=== PATIENT | female | born 1980 | race Caucasian/White ===

== ENCOUNTER 2017-12-30 09:40 | Inpatient (IN) | payer OTHER ==
[2017-12-30] MEDS ORDERED: Penicillin G Potassium IV* 5,000,000 UNITS in NS 0.9% 100 ML* 100 ML IVPB ONE (11:05)
[2017-12-30 11:43] LABS: ABS Basophils 0 10^3/ul (0-0.2); ABS Eosinophils 0.1 10^3/ul (0-0.6); ABS Lymphocytes 2.4 10^3/ul (1.0-4.8); ABS Monocytes 0.6 10^3/ul (0-0.8); ABS Nucleated RBC 0 10^3/ul; Eosinophil % 0.7 % (0-6); Hematocrit 40 % (35-47); Hemoglobin 13.4 g/dl (12.0-16.0); Lymphocyte % 21.7 % (25-47); Mean Corpuscular HGB Conc 34 g/dl (31-36); Mean Corpuscular Hemoglobin 32 pg (27-31); Mean Corpuscular Volume 94 fL (80-97); Nucleated Red Blood Cells % 0.1; Platelet Count 151 10^3/ul (150-450); Red Blood Count 4.25 10^6/ul (4.0-5.4); Red Cell Distribution Width 15 % (10.5-15); White Blood Count 11.1 10^3/ul (3.5-10.8)
--- NOTE | 2017-12-30 12:58 | PTEDU ---
Patient Name: DAVEY KWOK DAVEY KWOK selected video: Never Ever Shake a Baby to view on 12/30/2017 at 12:57:37 PM from [facility] [id number]
--- NOTE | 2017-12-30 14:04 | HP ---
General Information - General Information Maternal Age: 37 Grav: 2 Para: 1 SAB: 0 IEA: 0 Estimated Due Date: 12/25/17 Determined By: Early Ultrasound Gestational Age in Weeks and Days: 40 Weeks and 5 Days Maternal Blood Type and Rh: A Positive - Results this Serology/RPR Result: Non-Reactive Rubella Result: Immune HBsAg Result: Negative HIV Result: Negative GBS Culture Result: Positive Past Medical History Delivery History: Hx Complicated Vaginal Delivery, See Records Review of Systems Constitutional: Comfortable CV Complaint: No Respiratory: Shortness of Breath: No Gastrointestinal: No Nausea/Vomiting Genitourinary: Bleeding - spotting twice, No Dysuria, No Leaking Fluid Musculoskeletal: Contractions - q8min for several hours Neurological: No Headache, No Visual Changes Movement: Normal Exam Allergies/Adverse Reactions: Allergies No Known Allergies Allergy (Verified 12/30/17 11:06) Lab Values - Entire Visit: Laboratory Tests 12/30/17 12/30/17 10:00 10:00 WBC 11.1 H RBC 4.25 Hgb 13.4 Hct 40 MCV 94 MCH 32 H MCHC 34 RDW 15 Plt Count 151 MPV 11.0 H Neut % (Auto) 71.7 Lymph % (Auto) 21.7 L [place] % (Auto) 5.6 Eos % (Auto) 0.7 Baso % (Auto) 0.3 Absolute Neuts (auto) 8.0 H Absolute Lymphs (auto) 2.4 Absolute Monos (auto) 0.6 Absolute Eos (auto) 0.1 Absolute Basos (auto) 0 Absolute Nucleated RBC 0 Nucleated RBC % 0.1 Blood Type A Positive Antibody Screen Negative - Measurements Height: 5 ft 5 in Weight: 170 lb Weight in lbs: 170 Body Mass Index (BMI): 28.3 Pre- Weight: 125 lb Weight Gained This : 45 lbs and 0 ozs - Exam Abdomen: - Heart: Normal Rhythm/Heart Sounds HEENT: No Significant Findings - Cervical Exam /- - Abdominal Exam Abdomen Exam: Non-Tender, Fundal Height Consistent with Dates EFM Findings - External Monitor Findings Baseline Heart Rate: 140 External Monitor Findings: Accelerations Present, No Pattern of Variable or Late Decelerations, Variability Moderate, Baseline Stable Contractions: Irregular Assessment/Plan - Reason for Visit Reason for Visit: early labor. H/o fast labor - Obstetrical Risk Factors Obstetrical Risk Factors: GBS Positive - Plan Plan: Observe, Early Labor, Antibiotic Prophylaxis
[2017-12-30] MEDS ORDERED: Penicillin G Potassium IV* 2,500,000 UNITS in NS 0.9% 100 ML* 100 ML IVPB SCH (15:30)
[2017-12-30] MEDS ORDERED: Oxytocin in LR* 20 UNITS/1,000 ML BAG IVPB ONE (18:52)
[2017-12-30] MEDS ORDERED: Glycerin ADULT SUPP PR PRN (19:44)
[2017-12-30] MEDS ORDERED: Dibucaine 1% 28.35 GM TUBE PR PRN (19:44)
[2017-12-30] MEDS ORDERED: Witch Hazel PAD* JAR TOPICAL PRN (19:44)
[2017-12-30] MEDS: Ibuprofen TAB* 600 MG PO PRN (19:54)
[2017-12-30] MEDS: Docusate CAP* 100 MG PO SCH (21:00)
[2017-12-30] MEDS ORDERED: Simethicone TAB* 80 MG TAB.CHEW PO SCH (21:00)
[2017-12-30] MEDS: Acetaminophen TAB* 325 MG PO PRN (21:36)
[2017-12-31] MEDS: Ibuprofen TAB* 600 MG PO PRN ×3 (04:10→19:49)
[2017-12-31 07:19] LABS: ABS Basophils 0.1 10^3/ul (0-0.2); ABS Eosinophils 0.1 10^3/ul (0-0.6); ABS Lymphocytes 2.9 10^3/ul (1.0-4.8); ABS Nucleated RBC 0 10^3/ul; Eosinophil % 0.7 % (0-6); Hematocrit 33 % (35-47); Hemoglobin 11.2 g/dl (12.0-16.0); Lymphocyte % 19.3 % (25-47); Mean Corpuscular HGB Conc 34 g/dl (31-36); Mean Corpuscular Hemoglobin 31 pg (27-31); Mean Corpuscular Volume 93 fL (80-97); Mean Platelet Volume 11.1 um3 (7.4-10.4); Nucleated Red Blood Cells % 0; Platelet Count 143 10^3/ul (150-450); Red Blood Count 3.59 10^6/ul (4.0-5.4); Red Cell Distribution Width 14 % (10.5-15); White Blood Count 15.1 10^3/ul (3.5-10.8)
[2017-12-31] MEDS ORDERED: Ferrous Gluconate TAB* 324 MG TAB PO SCH (09:00)
[2017-12-31] MEDS: Acetaminophen TAB* 325 MG PO PRN (09:15)
[2017-12-31] MEDS: Docusate CAP* 100 MG PO SCH ×3 (09:16→19:46)
--- NOTE | 2017-12-31 13:35 | PTEDU ---
Patient Name: DAVEY KWOK DAVEY KWOK selected video: Follow Me Mum: [employer] [place] [facility] [employer] to view on 8 at 1:34:54 PM [id number]
[2018-01-01] MEDS: Ibuprofen TAB* 600 MG PO PRN ×3 (06:06→18:07)
[2018-01-01] MEDS: Docusate CAP* 100 MG PO SCH ×2 (08:31→13:23)
[2018-01-01 09:06] VITALS: BP 125/78
[2018-01-01] MEDS: Acetaminophen TAB* 325 MG PO PRN (13:23)
== END 2018-01-01 18:43 | disposition home or self-care (01) | DRG 774 ==
LOC: MCHOBOUT 09:40 → MCHOB 11:22
PROVIDERS: ADMIT Obstetrics & Gynecology; ATTEND Obstetrics & Gynecology
PROC: 10E0XZZ Delivery of Products of Conception, External Approach (ICD-10-PCS; principal; 2017-12-30)
PROC: 0KQM0ZZ Repair Perineum Muscle, Open Approach (ICD-10-PCS; 2017-12-30)
PROC: 4A1HXCZ Monitoring of Products of Conception, Cardiac Rate, External Approach (ICD-10-PCS; 2017-12-30)
DX: O48.0 Post-term pregnancy (principal); O16.5 Unspecified maternal hypertension, complicating the puerperium; Z37.0 Single live birth; Z3A.40 40 weeks gestation of pregnancy; O99.824 Streptococcus B carrier state complicating childbirth; O70.1 Second degree perineal laceration during delivery
CPT/HCPCS: 36415; 85025; 86850; 86900; 86901; A9270-GY; J2540